=== PATIENT | male | born 1985 | race Caucasian/White ===

== ENCOUNTER 2021-07-23 06:24 | Day surgery (SDC) | payer OTHER ==
[2021-07-22 09:02] VITALS: BMI 31.2
[~2021-07-23 06:24] MED LIST: LACTATED RINGERS 1,000 ML IV SCH
[2021-07-23 06:53] VITALS: RESP 16; TEMP 98.8
[2021-07-23] MEDS ORDERED: LIDOCAINE 1% INJ 10MG/ML (20 ML MDV) ONE (07:22)
[2021-07-23] MEDS ORDERED: KETAMINE 10 MG/ML 20 ML VIAL ONE (07:22)
[2021-07-23] MEDS ORDERED: PROPOFOL 10 MG/ML 20 ML VIAL IV ONE (07:22)
[2021-07-23] MEDS ORDERED: GLYCOPYRROLATE 0.2 MG/ML 2 ML VIAL ONE (07:22)
--- NOTE | 2021-07-23 07:44 | P.PCN ---
Date of Procedure: 07/23/21 Procedure(s) Performed: Brief history: Patient is a pleasant 36-year-old white male scheduled for an elective upper endoscopy as well as colonoscopy as a part of evaluation of GERD and intermittent rectal bleeding Procedure performed: Esophagogastroduodenoscopy with biopsy Colonoscopy Preoperative diagnosis: GERD Intermittent rectal bleeding Anesthesia: [facility] [place] Procedure: After informed consent was obtained from the patient was brought into the endoscopy unit and IV sedation was administered by anesthesia under continuous monitoring. Initially upper endoscopy was done. The Olympus GF 160 video endoscope was inserted inserted into the mouth and esophagus intubated without any difficulty and was gradually advanced into the stomach and duodenum and carefully examined. The bulb and second part of the duodenum appeared normal. The scope was then withdrawn into the stomach adequately insufflated with air and upon careful examination the antrum and body, cardia and fundus appeared normal. The scope was then withdrawn into the esophagus. The GE junction was located at 40 cm to the incisors. It appeared regular with no erythema erosions or ulcerations. Rest of the esophagus appeared normal. Patient tolerated the procedure well. At this time the patient continued to remain sedation. Initial digital rectal examination was normal. Olympus CF 160 video colonoscope was then inserted into the rectum and gradually advanced to the cecum without any difficulty. Careful examination was performed as the scope was gradually being withdrawn. The prep was excellent. The cecum, ascending colon, transverse colon, descending colon, sigmoid colon and rectum appeared normal. Retroflexion was performed in the rectum and small internal hemorrhoids were noted. Patient tolerated the procedure well. Impression: 1. Upper endoscopy revealed linear erosions in the distal esophagus consistent with LA grade B reflux esophagitis and mild antral gastritis 2. Colonoscopy revealed small internal hemorrhoids but no evidence of colorectal neoplasia. Recommendations: Findings of this examination were discussed with the patient as well as his family. He was advised to start on Prilosec 20 mg daily and follow antireflux measures. Recommended a high-fiber diet and fiber supplements a regular basis.
[2021-07-23 08:07] VITALS: BP 126/84; PULSE 67
== END 2021-07-23 08:57 | disposition home or self-care (01) ==
LOC: ORWHC2ENDO 06:24
PROVIDERS: ATTEND Internal Medicine Gastroenterology
DX: K21.00 Gastro-esophageal reflux disease with esophagitis, without bleeding (principal); K29.60 Other gastritis without bleeding; K64.8 Other hemorrhoids; U07.0 Vaping-related disorder
CPT/HCPCS: 45378; 43239; 88305; J2001; J2704